=== PATIENT | female | born 1940 | race Caucasian/White ===

== ENCOUNTER 2016-07-23 07:46 | Inpatient (IN) | payer MEDICARE, OTHER ==
[~2016-07-23 07:46] MED LIST: ALDACTONE25 M1 PO; AMARYL4 M1 PO; ASPIR 8181 M1 PO; ATENOLOL50 M1 PO; CEFDINIR300 M1 PO; FUROSEMIDE40 M2 PO; K-TAB ER10 MEQ PO; METOLAZONE5 M1 PO; NEXIUM40 M1 PO; PLAVIX75 M1 PO; SIMVASTATIN40 M1 PO; TRAMADOL HCL50 M2 PO; ZOFRAN ODT4 MG PO
[2016-07-23] MEDS ORDERED: POTASSIUM CHLO10 ME2 PO (08:34)
[2016-07-23] MEDS ORDERED: PROTONIX40 M2 PO (08:35)
[2016-07-23 08:43] LABS: INR 0.9 INR (0.9-1.1); PROTHROMBIN TIME 10.4 SECONDS (9.0-13.6)
[2016-07-23 08:46] LABS: BASO % 0.3 % (0-2); EOS % 1.8 % (0-7); EOSINOPHIL ABSOLUTE COUNT 0.3 tho/cmm (0.0-0.7); HGB-HEMOGLOBIN 11.3 gm/dl (12.0-15.5); IMMATURE GRANULOCYTES ABSOLUTE 0.11 tho/cmm (0-0.03); IMMATURE GRANULOCYTES PERCENT 0.7 % (0-0.3); LYMPH % 23.4 % (20-45); LYMPH ABSOLUTE COUNT 3.4 tho/cmm (0.8-4.5); MCHC MEAN CORPUSCULAR HGB CONC 32.3 % (32.0-36.0); MCV (MEAN CELL VOLUME) 92.8 fl (82.0-96.0); MEAN PLATELET VOLUME 9.4 cmc (9.4-12.4); MONO % 7.7 % (0-12); MONOCYTE ABSOLUTE COUNT 1.1 tho/cmm (0.0-1.2); NEUTROPHIL ABSOLUTE COUNT 9.7 tho/cmm (1.6-8.0); NEUTROPHIL-AUTOMATED 9.7 tho/cmm (1.6-8.0); NEUTROPHILS % 66.1 % (40-80); PLATELET COUNT 268 tho/cmm (150-450); RED BLOOD COUNT 3.77 mil/cmm (4.00-5.20); RED CELL DISTRIBUTION WIDTH 13.6 % (12.4-16.4); WHITE BLOOD COUNT 14.7 tho/cmm (4.0-10.0)
[2016-07-23 17:30] LABS: ANION GAP 10 mmol/L (0-20); BLOOD UREA NITROGEN 34 mg/dl (6-24); CALCIUM 9.6 mg/dl (8.5-10.5); CARBON DIOXIDE-VENOUS 32 mmol/L (22-32); CHLORIDE 105 mmol/l (96-110); CREATININE 2.28 mg/dl (0.50-1.10); POTASSIUM 4.7 mmol/L (3.7-5.1); SODIUM 142 mmol/L (135-145); eGFR VALUE FOR BLACK 24 mL/Min
[2016-07-23 17:35] LABS: GLUCOSE 66 mg/dL (70-110)
[2016-07-24 13:42] LABS: ABG CO2 ARTERIAL 23 mmol/L (21-27); ARTERIAL BLD GAS O2 SATURATION 94 % (95-98); ARTERIAL BLOOD GAS PCO2 43 mmHg (32-45); ARTERIAL PO2 69 mmHg (70-100); BICARBONATE 25 mmol/L (21-28); BLOOD GAS BASE EXCESS 1 mM/L (-/+3); PH 7.39 Units (7.35-7.45)
[2016-07-25] MEDS ORDERED: TYLENOL325 M2 PO (09:55)
[2016-07-25] MEDS ORDERED: POLYETHYLENE G255 G1 PO (09:56)
[2016-07-25] MEDS ORDERED: ANALGESIC BALM30 G2 TOP (09:59)
[2016-07-28] MEDS ORDERED: OXYCODONE10 MG/0.5 PO (11:20)
[2016-07-28] MEDS ORDERED: TYLENOL EXTRA500 M1 PO (11:21)
[2016-07-28] MEDS ORDERED: DEXAMETHASONE4 M1 PO ×2 (11:22→11:24)
[2016-07-28] MEDS ORDERED: COLACE100 M1 PO (11:25)
[2016-07-28] MEDS ORDERED: MILK OF MAGNESIA PO (11:25)
[2016-07-28] MEDS ORDERED: AMARYL4 M1 PO (11:26)
[2016-07-28] MEDS ORDERED: LIDODERM1 EACH TOP (11:27)
[2016-07-28] MEDS ORDERED: OXYCODONE20 MG/1 M3 PO (11:47)
== END 2016-07-28 13:49 | disposition hospice, inpatient (51) | DRG 199 ==
LOC: SHSB 07:46 → CAR1 17:30 → CTSCAN 07-24 13:33 → CAR1 07-24 13:35 → PCUB 07-24 16:00
PROVIDERS: Nurse Practitioner Acute Care; Radiology Diagnostic Radiology; ADMIT Internal Medicine
PROC: 0BBC3ZX Excision of Right Upper Lung Lobe, Percutaneous Approach, Diagnostic (ICD-10-PCS; principal; 2016-07-23)
DX: J93.9 Pneumothorax, unspecified (principal); G93.40 Encephalopathy, unspecified; E44.0 Moderate protein-calorie malnutrition; N18.4 Chronic kidney disease, stage 4 (severe); C41.9 Malignant neoplasm of bone and articular cartilage, unspecified; C78.00 Secondary malignant neoplasm of unspecified lung; C79.51 Secondary malignant neoplasm of bone; C34.90 Malignant neoplasm of unspecified part of unspecified bronchus or lung; Z51.5 Encounter for palliative care; Z66 Do not resuscitate
CPT/HCPCS: J1100; J1815; J2060; J2270; J2405; J3010; J7030; J7512